=== PATIENT | male | born 1965 | race African-American/Black ===

== ENCOUNTER 2018-09-02 12:24 | Emergency (ER) | payer SELFPAY ==
[~2018-09-02] VITALS: Ht 175.3 cm; Wt 65.6 kg
[2018-09-02 12:35] VITALS: BP 127/83
[2018-09-02] MEDS ORDERED: LIDOCAINE 2% VISCOUS 15 ML UDC ONE (13:02)
[2018-09-02] MEDS ORDERED: BENZOCAINE 20% SPRAY 0.5ML ONE (13:07)
== END 2018-09-02 13:35 | disposition home or self-care (01) ==
LOC: ED 13:00
DX: K04.7 Periapical abscess without sinus (principal); F15.10 Other stimulant abuse, uncomplicated; F17.200 Nicotine dependence, unspecified, uncomplicated; Z72.89 Other problems related to lifestyle; Z91.14 Patient's other noncompliance with medication regimen
CPT/HCPCS: 41800; 99283

== ENCOUNTER 2018-11-03 03:23 | Emergency (ER) | payer OTHER ==
[~2018-11-03] VITALS: Ht 175.3 cm; Wt 68.0 kg
[2018-11-03 03:25] VITALS: BP 39/98
[2018-11-03] MEDS ORDERED: IBUPROFEN 200 MG TABLET PO ONE (04:00)
[2018-11-03] MEDS ORDERED: IBUPROFEN 600 MG TABLET ONE (04:07)
== END 2018-11-03 04:11 | disposition home or self-care (01) ==
LOC: ED 03:38
DX: K04.6 Periapical abscess with sinus (principal); K02.9 Dental caries, unspecified; F17.200 Nicotine dependence, unspecified, uncomplicated
CPT/HCPCS: 41800; 99283

== ENCOUNTER 2018-12-05 02:57 | Emergency (ER) | payer MEDICAID ==
[~2018-12-05] VITALS: Ht 175.3 cm; Wt 69.0 kg
[2018-12-05 03:05] VITALS: BP 151/103
== END 2018-12-05 03:39 | disposition home or self-care (01) ==
LOC: ED 03:00
DX: K04.6 Periapical abscess with sinus (principal); F17.200 Nicotine dependence, unspecified, uncomplicated
CPT/HCPCS: 41800